=== PATIENT | male | born 1980 | race African-American/Black ===

== ENCOUNTER 2021-01-13 06:24 | Emergency (ER) | payer OTHER ==
[~2021-01-13] VITALS: Ht 175.3 cm; Wt 79.4 kg
[2021-01-13] MEDS ORDERED: FLEXERIL PO (07:03)
[2021-01-13] MEDS ORDERED: MEDROLDOSEPACK PO (07:03)
[2021-01-13 07:05] VITALS: BP 116/75
== END 2021-01-13 07:14 | disposition home or self-care (01) ==
LOC: ER 06:24
DX: S29.012A Strain of muscle and tendon of back wall of thorax, initial encounter (principal); V89.2XXA Person injured in unspecified motor-vehicle accident, traffic, initial encounter; Y93.89 Activity, other specified; Y92.89 Other specified places as the place of occurrence of the external cause; Y99.8 Other external cause status